=== PATIENT | male | born 1980 | race Caucasian/White ===

== ENCOUNTER 2018-04-30 07:23 | Inpatient (IN) | payer OTHER ==
[~2018-04-30 07:23] MED LIST: SUCCINYLCHOLINE CHLORIDE 100 MG/5 ML SYG IV
[2018-04-30] MEDS: SOD CHLORIDE 0.9% 1,000 ML IV (08:15)
[2018-04-30] MEDS: ONDANSETRON 4 MG INJ IV ×2 (08:23→15:13)
[2018-04-30] MEDS: morphine 4 MG/ML VIAL IV (08:23)
[2018-04-30 08:35] LABS: ADD MAN DIFF? NO
[2018-04-30 08:38] LABS: BASOPHILS % 0.2 % (0.0-2.0); EOSINOPHILS # 0.2 10^3/ul (0.0-0.5); EOSINOPHILS % 2.3 % (0.0-7.0); HEMATOCRIT 45.8 % (42.0-52.0); HEMOGLOBIN 16.1 g/dl (14.0-18.0); LYMPHOCYTES # 2.3 10^3/ul (0.8-2.9); LYMPHOCYTES % 22.2 % (15.0-51.0); MEAN CORPUSCULAR HEMOGLOBIN 31.7 pg (29.0-33.0); MEAN CORPUSCULAR HGB CONC 35.2 g/dl (32.0-37.0); MEAN CORPUSCULAR VOLUME 90.2 fl (82.0-101.0); NEUTROPHIL # 6.6 10^3/ul (1.6-7.5); NEUTROPHILS % 64.9 % (39.0-77.0); PLATELET COUNT 278 10^3/UL (140-415); RED BLOOD COUNT 5.08 10^6/ul (4.70-6.10); RED CELL DISTRIBUTION WIDTH 11.9 % (11.5-14.5)
[2018-04-30 08:38] LABS: WHITE BLOOD COUNT 10.1 10^3/ul (4.8-10.8)
[2018-04-30 08:48] LABS: ADD UMIC NO; UR ASCORBIC ACID NEGATIVE (NEGATIVE); UR BILIRUBIN (Dip) NEGATIVE (NEGATIVE); UR BLOOD (Dip) NEGATIVE (NEGATIVE); UR CLARITY CLEAR (CLEAR); UR COLOR YELLOW (YELLOW); UR GLUCOSE (Dip) NEGATIVE (NEGATIVE); UR KETONES (Dip) NEGATIVE (NEGATIVE); UR LEUKOCYTE ESTERASE (Dip) NEGATIVE Leu/ul (NEGATIVE); UR NITRITE (Dip) NEGATIVE (NEGATIVE); UR SPECIFIC GRAVITY (Dip) 1.025 (1.003-1.030); UR TOTAL PROTEIN (Dip) NEGATIVE (NEGATIVE); UR UROBILINOGEN (Dip) NEGATIVE (NEGATIVE)
[2018-04-30 08:58] LABS: INR 1.06; PROTIME 13.9 Sec (11.9-14.9); PT RATIO 1.1
[2018-04-30 08:59] LABS: ALANINE AMINOTRANSFERASE 34 IU/L (13-69); ALBUMIN 4.9 g/dl (3.3-4.9); ALKALINE PHOSPHATASE 111 IU/L (42-121); AMYLASE 62 U/L (11-123); ANION GAP 13 (8-16); ASPARTATE AMINO TRANSFERASE 30 IU/L (15-46); BILIRUBIN,INDIRECT 0.8 mg/dl (0-1.1); BILIRUBIN,TOTAL 0.8 mg/dl (0.2-1.3); BLOOD UREA NITROGEN 11 mg/dl (7-20); CALCIUM 9.5 mg/dl (8.4-10.2); CARBON DIOXIDE 29 mmol/L (21-31); CHLORIDE 103 mmol/L (97-110); CREATININE 0.91 mg/dl (0.61-1.24); GLUCOSE 104 mg/dl (70-220); LIPASE 41 U/L (23-300); PARTIAL THROMBOPLASTIN TIME 32.4 Sec (25.0-35.0); POTASSIUM 4.4 mmol/L (3.5-5.1); SODIUM 141 mmol/L (135-144); TOTAL PROTEIN 8.4 g/dl (6.1-8.1)
[2018-04-30] MEDS: SOD CHLORIDE 0.9% 100 ML (09:57)
[2018-04-30] MEDS: IOHEXOL 300MG/ML 150 ML BTL (09:58)
[2018-04-30] MEDS: PIPER-TAZO 3.375 GM IV (PMX) 100 ML IVPB ×2 (10:23→18:22)
[2018-04-30] MEDS ORDERED: ONDANSETRON 4 MG INJ IV ×3 (11:30→21:30)
[2018-04-30] MEDS ORDERED: DOCUSATE SODIUM 100 MG CAP PO (14:00)
[2018-04-30] MEDS ORDERED: BISACODYL 10 MG SUPP PR (14:00)
[2018-04-30] MEDS ORDERED: MAGNESIUM HYDROXIDE 30ML CUP PO (14:00)
[2018-04-30] MEDS ORDERED: ACETAMINOPHEN 325 MG TAB PO ×2 (14:00→21:30)
[2018-04-30] MEDS ORDERED: ACETAMINOPHEN 650 MG SUPP PR (14:00)
[2018-04-30] MEDS ORDERED: NACL 0.9% 3 ML SYG IV (14:00)
[2018-04-30] MEDS: morphine 2 MG INJ IV (15:13)
[2018-04-30] MEDS: DEXTROSE 5%-0.9% NACL 1,000 ML IV (15:38)
[2018-04-30] MEDS ORDERED: PROPOFOL 20 ML (21:10)
[2018-04-30] MEDS ORDERED: ROCURONIUM 50 MG INJ (21:10)
[2018-04-30] MEDS ORDERED: DEXAMETHASONE 4 MG/ML 1 ML INJ (21:10)
[2018-04-30] MEDS ORDERED: FENTAnyl 50 MCG/ML VIAL (21:10)
[2018-04-30] MEDS ORDERED: GLYCOPYRROLATE 0.4 MG INJ (21:10)
[2018-04-30] MEDS ORDERED: NEOSTIGMINE 3 MG/3 ML SYRINGE (21:10)
[2018-04-30] MEDS ORDERED: CEFAZOLIN 1 GM INJ (21:10)
[2018-04-30] MEDS ORDERED: ONDANSETRON 4 MG INJ (21:10)
[2018-04-30] MEDS ORDERED: MIDAZOLAM 1 MG/ML 2 ML INJ (21:10)
[2018-04-30] MEDS ORDERED: LABETALOL HCL 20MG INJ IV (21:30)
[2018-04-30] MEDS ORDERED: OXYCODONE/ACETAMINOPHEN (5/325) TAB PO ×2 (21:30)
[2018-04-30] MEDS ORDERED: EPHEDrine SULFATE 50 MG/5 ML SYG IV (21:30)
[2018-04-30] MEDS ORDERED: IPRATROPIUM (NEB) 0.5 MG/2.5 ML AMP HHN (21:30)
[2018-04-30] MEDS ORDERED: FENTAnyl 50 MCG/ML VIAL IV ×3 (21:30)
[2018-04-30] MEDS ORDERED: ALBUTEROL 0.083% (NEB) 2.5 MG/3 ML AMP HHN (21:30)
[2018-04-30] MEDS ORDERED: DIPHENHYDRAMINE 50 MG INJ IV (21:30)
[2018-04-30] MEDS ORDERED: TRIMETHOBENZAMIDE 100 MG/ML VIAL IM (21:30)
[2018-04-30] MEDS ORDERED: MIDAZOLAM 1 MG/ML 2 ML INJ IV (21:30)
[2018-04-30] MEDS ORDERED: HYDROmorphONE 1 MG/5 ML IV SYRINGE IV ×3 (21:30)
[2018-04-30] MEDS ORDERED: MEPERIDINE 25 MG INJ IV (21:30)
[2018-04-30] MEDS ORDERED: hydrALAzine 20 MG INJ IV (21:30)
[2018-04-30] MEDS ORDERED: KETOROLAC 30 MG INJ (22:01)
[2018-04-30] MEDS: BUPIVACAINE 0.25% (MPF) 30 ML INJ (22:12)
[2018-04-30] MEDS: LIDOCAINE 1%/EPI 30 ML INJ (22:12)
[2018-04-30] MEDS ORDERED: METOCLOPRAMIDE 10 MG INJ (22:23)
[2018-05-01] MEDS: PIPER-TAZO 3.375 GM IV (PMX) 100 ML IVPB ×3 (00:16→11:46)
[2018-05-01] MEDS: morphine 2 MG INJ IV ×2 (00:37→05:59)
[2018-05-01] MEDS ORDERED: KETOROLAC 15 MG INJ IV (02:00)
[2018-05-01] MEDS: D5-NS + KCL 20 MEQ 1,000 ML IV ×2 (02:39→08:00)
[2018-05-01] MEDS: PANTOPRAZOLE 40 MG INJ IV (06:00)
[2018-05-01] MEDS: ONDANSETRON 4 MG INJ IV (06:11)
[2018-05-01] MEDS: ENOXAPARIN 40 MG/0.4 ML SYG SC (06:57)
[2018-05-01 07:34] LABS: ADD MAN DIFF? NO
[2018-05-01 07:38] LABS: ABNORMAL IP MESSAGE 1; BASOPHILS % 0.2 % (0.0-2.0); HEMATOCRIT 44.3 % (42.0-52.0); HEMOGLOBIN 15.4 g/dl (14.0-18.0); LYMPHOCYTES # 0.4 10^3/ul (0.8-2.9); LYMPHOCYTES % 3.3 % (15.0-51.0); MEAN CORPUSCULAR HEMOGLOBIN 31.5 pg (29.0-33.0); MEAN CORPUSCULAR HGB CONC 34.8 g/dl (32.0-37.0); MEAN CORPUSCULAR VOLUME 90.6 fl (82.0-101.0); MEAN PLATELET VOLUME 9.1 fl (7.4-10.4); MONOCYTE # 0.9 10^3/ul (0.3-0.9); MONOCYTES % 6.9 % (0.0-11.0); NEUTROPHIL # 11.7 10^3/ul (1.6-7.5); NEUTROPHILS % 89.4 % (39.0-77.0); PLATELET COUNT 269 10^3/UL (140-415); POSITIVE DIFF @See below; RED BLOOD COUNT 4.89 10^6/ul (4.70-6.10); RED CELL DISTRIBUTION WIDTH 11.9 % (11.5-14.5)
[2018-05-01 07:38] LABS: WHITE BLOOD COUNT 13.1 10^3/ul (4.8-10.8)
[2018-05-01 08:02] LABS: ANION GAP 14 (8-16); BLOOD UREA NITROGEN 6 mg/dl (7-20); CALCIUM 9.1 mg/dl (8.4-10.2); CARBON DIOXIDE 29 mmol/L (21-31); CHLORIDE 101 mmol/L (97-110); GLUCOSE 161 mg/dl (70-220); MAGNESIUM 1.9 mg/dl (1.7-2.5); SODIUM 140 mmol/L (135-144)
[2018-05-01] MEDS: HYDROCODONE/APAP (5/325) TAB PO (11:11)
[2018-05-04] MEDS ORDERED: IBUPROFEN 600 MG TAB PO (02:00)
== END 2018-05-01 16:28 | disposition home or self-care (01) | DRG 340 ==
LOC: FTE 07:23 → 2NE 16:52
PROC: 0DTJ4ZZ Resection of Appendix, Percutaneous Endoscopic Approach (ICD-10-PCS; principal; 2018-04-30 15:00)
DX: K35.3 Acute appendicitis with localized peritonitis (principal)
CPT/HCPCS: 36415; 74177; 80048; 80053; 81003; 82150; 83690; 83735; 84484; 85025; 85610; 85730; 88304; 93005; 96361; 96365; 96375; 99291-25

== ENCOUNTER 2018-05-12 16:48 | Inpatient (IN) | payer OTHER ==
[2018-05-12] MEDS: ACETAMINOPHEN 500 MG TAB PO (17:11)
[2018-05-12] MEDS: ONDANSETRON 4 MG INJ IV (17:11)
[2018-05-12] MEDS: morphine 4 MG/ML VIAL IV (17:11)
[2018-05-12] MEDS: SOD CHLORIDE 0.9% 1,000 ML IV (17:12)
[2018-05-12 17:25] LABS: ADD MAN DIFF? NO
[2018-05-12 17:27] LABS: BASOPHILS % 0.5 % (0.0-2.0); EOSINOPHILS % 0.2 % (0.0-7.0); HEMATOCRIT 41.8 % (42.0-52.0); HEMOGLOBIN 14.5 g/dl (14.0-18.0); IMMATURE GRANS #M 0.02 10^3/ul; IMMATURE GRANS % (M) 0.2 %; LYMPHOCYTES # 1.1 10^3/ul (0.8-2.9); LYMPHOCYTES % 12.8 % (15.0-51.0); MEAN CORPUSCULAR HGB CONC 34.7 g/dl (32.0-37.0); MEAN CORPUSCULAR VOLUME 89.3 fl (82.0-101.0); MEAN PLATELET VOLUME 8.6 fl (7.4-10.4); MONOCYTE # 0.7 10^3/ul (0.3-0.9); MONOCYTES % 8.2 % (0.0-11.0); NEUTROPHIL # 6.9 10^3/ul (1.6-7.5); NEUTROPHILS % 78.1 % (39.0-77.0); PLATELET COUNT 379 10^3/UL (140-415); RED BLOOD COUNT 4.68 10^6/ul (4.70-6.10); RED CELL DISTRIBUTION WIDTH 11.6 % (11.5-14.5)
[2018-05-12 17:27] LABS: WHITE BLOOD COUNT 8.8 10^3/ul (4.8-10.8)
[2018-05-12] MEDS: PIPER-TAZO 3.375 GM IV (PMX) 100 ML IVPB (17:44)
[2018-05-12 17:45] LABS: ALANINE AMINOTRANSFERASE 80 IU/L (13-69); ALBUMIN 4.2 g/dl (3.3-4.9); ALKALINE PHOSPHATASE 160 IU/L (42-121); AMYLASE 59 U/L (11-123); ANION GAP 16 (8-16); ASPARTATE AMINO TRANSFERASE 66 IU/L (15-46); BILIRUBIN,INDIRECT 0.4 mg/dl (0-1.1); BILIRUBIN,TOTAL 0.4 mg/dl (0.2-1.3); BLOOD UREA NITROGEN 12 mg/dl (7-20); CALCIUM 8.9 mg/dl (8.4-10.2); CARBON DIOXIDE 27 mmol/L (21-31); CHLORIDE 98 mmol/L (97-110); CREATININE 0.96 mg/dl (0.61-1.24); GLUCOSE 136 mg/dl (70-220); LIPASE 48 U/L (23-300); SODIUM 137 mmol/L (135-144); TOTAL PROTEIN 8.4 g/dl (6.1-8.1)
[2018-05-12 17:47] LABS: INR 1.18; PARTIAL THROMBOPLASTIN TIME 37.1 Sec (25.0-35.0); PROTIME 15.2 Sec (11.9-14.9); PT RATIO 1.2
[2018-05-12] MEDS: SODIUM CHLORIDE 0.9% 1L BAG IV* (18:05)
[2018-05-12 18:06] LABS: ADD UMIC YES; UR ASCORBIC ACID NEGATIVE (NEGATIVE); UR BACTERIA FEW /HPF (NONE SEEN); UR BILIRUBIN (Dip) NEGATIVE (NEGATIVE); UR BLOOD (Dip) 1+ mg/dL (NEGATIVE); UR CLARITY CLEAR (CLEAR); UR COLOR YELLOW (YELLOW); UR GLUCOSE (Dip) NEGATIVE (NEGATIVE); UR KETONES (Dip) NEGATIVE (NEGATIVE); UR LEUKOCYTE ESTERASE (Dip) NEGATIVE Leu/ul (NEGATIVE); UR NITRITE (Dip) NEGATIVE (NEGATIVE); UR RBC 7 /HPF (0-5); UR SPECIFIC GRAVITY (Dip) 1.013 (1.003-1.030); UR TOTAL PROTEIN (Dip) NEGATIVE (NEGATIVE); UR UROBILINOGEN (Dip) 2+ mg/dL (NEGATIVE); UR WBC 1 /HPF (0-5)
[2018-05-12] MEDS ORDERED: ACETAMINOPHEN 500 MG TAB PO (18:54)
[2018-05-12] MEDS: IOHEXOL 100 ML (19:25)
[2018-05-12] MEDS: SOD CHLORIDE 0.9% 100 ML (19:25)
[2018-05-13] MEDS ORDERED: BISACODYL 10 MG SUPP PR (01:00)
[2018-05-13] MEDS ORDERED: NACL 0.9% 3 ML SYG IV (01:00)
[2018-05-13] MEDS ORDERED: ONDANSETRON 4 MG INJ IV ×2 (01:00→08:30)
[2018-05-13] MEDS ORDERED: morphine 2 MG INJ IV (01:00)
[2018-05-13] MEDS: PIPER-TAZO 3.375 GM IV (PMX) 100 ML IVPB ×4 (01:50→17:18)
[2018-05-13] MEDS: D5-NS + KCL 20 MEQ 1,000 ML IV ×4 (01:51→22:20)
[2018-05-13] MEDS: ACETAMINOPHEN 325 MG TAB PO (04:54)
[2018-05-13] MEDS: PANTOPRAZOLE 40 MG INJ IV (05:58)
[2018-05-13 06:07] LABS: ADD MAN DIFF? NO
[2018-05-13 06:18] LABS: BASOPHILS % 0.4 % (0.0-2.0); EOSINOPHILS % 0.6 % (0.0-7.0); HEMATOCRIT 38.3 % (42.0-52.0); HEMOGLOBIN 13.3 g/dl (14.0-18.0); IMMATURE GRANS #M 0.03 10^3/ul; IMMATURE GRANS % (M) 0.4 %; LYMPHOCYTES # 0.7 10^3/ul (0.8-2.9); LYMPHOCYTES % 10.2 % (15.0-51.0); MEAN CORPUSCULAR HEMOGLOBIN 30.7 pg (29.0-33.0); MEAN CORPUSCULAR HGB CONC 34.7 g/dl (32.0-37.0); MEAN CORPUSCULAR VOLUME 88.5 fl (82.0-101.0); MEAN PLATELET VOLUME 8.7 fl (7.4-10.4); MONOCYTE # 0.8 10^3/ul (0.3-0.9); MONOCYTES % 10.7 % (0.0-11.0); NEUTROPHIL # 5.7 10^3/ul (1.6-7.5); NEUTROPHILS % 77.7 % (39.0-77.0); PLATELET COUNT 330 10^3/UL (140-415); RED BLOOD COUNT 4.33 10^6/ul (4.70-6.10); RED CELL DISTRIBUTION WIDTH 11.8 % (11.5-14.5)
[2018-05-13 06:18] LABS: WHITE BLOOD COUNT 7.3 10^3/ul (4.8-10.8)
[2018-05-13 06:40] LABS: ALANINE AMINOTRANSFERASE 64 IU/L (13-69); ALBUMIN 3.5 g/dl (3.3-4.9); ALBUMIN/GLOBULIN RATIO 0.97; ALKALINE PHOSPHATASE 139 IU/L (42-121); ANION GAP 13 (8-16); ASPARTATE AMINO TRANSFERASE 53 IU/L (15-46); BILIRUBIN,INDIRECT 0.4 mg/dl (0-1.1); BILIRUBIN,TOTAL 0.4 mg/dl (0.2-1.3); BLOOD UREA NITROGEN 9 mg/dl (7-20); CALCIUM 8.4 mg/dl (8.4-10.2); CARBON DIOXIDE 24 mmol/L (21-31); CHLORIDE 107 mmol/L (97-110); CREATININE 0.88 mg/dl (0.61-1.24); GLUCOSE 122 mg/dl (70-220); MAGNESIUM 2.1 mg/dl (1.7-2.5); PHOSPHORUS 2.3 mg/dl (2.5-4.9); SODIUM 140 mmol/L (135-144); TOTAL PROTEIN 7.1 g/dl (6.1-8.1)
[2018-05-13] MEDS ORDERED: HYDROmorphONE 1 MG/5 ML IV SYRINGE IV ×2 (08:30)
[2018-05-13] MEDS ORDERED: DIPHENHYDRAMINE 50 MG INJ IV (08:30)
[2018-05-13] MEDS ORDERED: FENTAnyl 50 MCG/ML VIAL IV ×2 (08:30)
[2018-05-13] MEDS ORDERED: MEPERIDINE 25 MG INJ IV (08:30)
[2018-05-13] MEDS ORDERED: KETOROLAC 30 MG INJ IV (08:30)
[2018-05-13] MEDS: SOD CHLORIDE 0.9% 500 ML (10:10)
[2018-05-13] MEDS: MIDAZOLAM 1 MG/ML 2 ML INJ (10:19)
[2018-05-13] MEDS: FENTAnyl 50 MCG/ML VIAL (10:20)
[2018-05-13] MEDS: LIDOCAINE 1% (MPF) 5 ML VIAL (10:30)
[2018-05-13] MEDS: morphine 2 MG INJ IV ×4 (11:45→21:00)
[2018-05-14] MEDS: ZOLPIDEM 5 MG TAB PO (00:28)
[2018-05-14] MEDS: PIPER-TAZO 3.375 GM IV (PMX) 100 ML IVPB ×5 (00:29→23:54)
[2018-05-14] MEDS: morphine 2 MG INJ IV ×3 (05:48→15:29)
[2018-05-14] MEDS: PANTOPRAZOLE 40 MG INJ IV (05:48)
[2018-05-14] MEDS: DOCUSATE SODIUM 100 MG CAP PO (10:18)
[2018-05-14] MEDS: D5-NS + KCL 20 MEQ 1,000 ML IV (11:01)
[2018-05-14 11:34] LABS: ADD MAN DIFF? NO
[2018-05-14 11:36] LABS: WHITE BLOOD COUNT 5.9 10^3/ul (4.8-10.8)
[2018-05-14 11:36] LABS: BASOPHILS % 0.3 % (0.0-2.0); EOSINOPHILS # 0.1 10^3/ul (0.0-0.5); EOSINOPHILS % 1.5 % (0.0-7.0); HEMATOCRIT 39.8 % (42.0-52.0); HEMOGLOBIN 13.8 g/dl (14.0-18.0); LYMPHOCYTES % 16.8 % (15.0-51.0); MEAN CORPUSCULAR HGB CONC 34.7 g/dl (32.0-37.0); MEAN CORPUSCULAR VOLUME 89.4 fl (82.0-101.0); MEAN PLATELET VOLUME 8.6 fl (7.4-10.4); MONOCYTE # 0.8 10^3/ul (0.3-0.9); MONOCYTES % 12.9 % (0.0-11.0); NEUTROPHILS % 68.3 % (39.0-77.0); PLATELET COUNT 362 10^3/UL (140-415); RED BLOOD COUNT 4.45 10^6/ul (4.70-6.10); RED CELL DISTRIBUTION WIDTH 11.8 % (11.5-14.5)
[2018-05-15] MEDS: morphine 2 MG INJ IV ×2 (02:27→09:16)
[2018-05-15] MEDS: PANTOPRAZOLE 40 MG INJ IV (05:45)
[2018-05-15] MEDS: PIPER-TAZO 3.375 GM IV (PMX) 100 ML IVPB ×2 (05:46→11:43)
[2018-05-15 06:30] LABS: ADD MAN DIFF? NO
[2018-05-15 06:42] LABS: WHITE BLOOD COUNT 4.3 10^3/ul (4.8-10.8)
[2018-05-15 06:42] LABS: BASOPHILS % 0.5 % (0.0-2.0); EOSINOPHILS # 0.2 10^3/ul (0.0-0.5); EOSINOPHILS % 5.6 % (0.0-7.0); HEMATOCRIT 43.3 % (42.0-52.0); HEMOGLOBIN 14.4 g/dl (14.0-18.0); LYMPHOCYTES # 1.7 10^3/ul (0.8-2.9); LYMPHOCYTES % 39.7 % (15.0-51.0); MEAN CORPUSCULAR HEMOGLOBIN 30.3 pg (29.0-33.0); MEAN CORPUSCULAR HGB CONC 33.3 g/dl (32.0-37.0); MEAN PLATELET VOLUME 8.8 fl (7.4-10.4); MONOCYTE # 0.6 10^3/ul (0.3-0.9); MONOCYTES % 13.8 % (0.0-11.0); NEUTROPHIL # 1.7 10^3/ul (1.6-7.5); NEUTROPHILS % 39.9 % (39.0-77.0); PLATELET COUNT 391 10^3/UL (140-415); RED BLOOD COUNT 4.76 10^6/ul (4.70-6.10); RED CELL DISTRIBUTION WIDTH 11.9 % (11.5-14.5)
[2018-05-15 06:57] LABS: ANION GAP 17 (8-16); BLOOD UREA NITROGEN 11 mg/dl (7-20); CALCIUM 9.4 mg/dl (8.4-10.2); CARBON DIOXIDE 31 mmol/L (21-31); CHLORIDE 100 mmol/L (97-110); GLUCOSE 90 mg/dl (70-220); POTASSIUM 4.1 mmol/L (3.5-5.1); SODIUM 144 mmol/L (135-144)
[2018-05-15 07:10] LABS: MAGNESIUM 2.4 mg/dl (1.7-2.5)
[2018-05-15] MEDS: MAGNESIUM HYDROXIDE 30ML CUP PO (09:15)
[2018-05-15] MEDS ORDERED: OXYCODONE/ACETAMINOPHEN (10/325) TAB PO (10:30)
== END 2018-05-15 15:18 | disposition home or self-care (01) | DRG 862 ==
LOC: PP2 05-13 00:43 → FTE 16:48
PROC: 0W9G30Z Drainage of Peritoneal Cavity with Drainage Device, Percutaneous Approach (ICD-10-PCS; principal; 2018-05-13)
DX: T81.4XXA Infection following a procedure, initial encounter (principal); K65.1 Peritoneal abscess; Y84.8 Other medical procedures as the cause of abnormal reaction of the patient, or of later complication, without mention of misadventure at the time of the procedure; Y92.019 Unspecified place in single-family (private) house as the place of occurrence of the external cause; F12.90 Cannabis use, unspecified, uncomplicated
CPT/HCPCS: 36415; 71275; 74177; 75989; 77012; 80048; 80053; 81001; 82150; 83605; 83690; 83735; 84100; 85025; 85610; 85730; 87040; 87081; 96374; 96375; 99285-25